=== PATIENT | male | born 1980 | race Caucasian/White ===

== ENCOUNTER 2018-12-14 09:25 | Outpatient (CLI) | payer MEDICAID ==
--- NOTE | 2018-12-14 20:51 | XRAY Report ---
Reason: THUMB PAIN,RIGHT Procedure Date: 12/14/2018 Accession Number: [id number] / [id number] Procedure: XRN - Hand 3 View RT CPT Code: FULL RESULT: EXAM: RIGHT HAND RADIOGRAPHY EXAM DATE: 12/14/2018 09:38 AM. CLINICAL HISTORY: THUMB Pain, right. Jammed thumb playing basketball in August, not any better. COMPARISON: None. TECHNIQUE: 3 views. FINDINGS: Bones: Normal. No fractures or bone lesions. Joints: Normal. No subluxations. Soft Tissues: Normal. No soft tissue swelling. IMPRESSION: Normal hand radiography. [facility]
== END 2018-12-14 09:26 | disposition home or self-care (01) ==
LOC: DI.N 09:25
PROVIDERS: ATTEND Family Medicine
DX: M79.644 Pain in right finger(s) (principal)